=== PATIENT | female | born 2000 | race Caucasian/White ===

== ENCOUNTER 2021-04-11 17:49 | Emergency (ER) | payer OTHER ==
[~2021-04-11] VITALS: Ht 162.6 cm; Wt 65.8 kg
[2021-04-11] MEDS ORDERED: CYCL10 PO (21:33)
[2021-04-11] MEDS ORDERED: IBUP600 PO (21:33)
== END 2021-04-11 21:58 | disposition home or self-care (01) ==
LOC: ER 17:49
DX: T22.412A Corrosion of unspecified degree of left forearm, initial encounter (principal); T21.42XA Corrosion of unspecified degree of abdominal wall, initial encounter; V49.40XA Driver injured in collision with unspecified motor vehicles in traffic accident, initial encounter; Y92.410 Unspecified street and highway as the place of occurrence of the external cause
CPT/HCPCS: 73110; 74177; 90471; 90714; 96374; 99284-25; A9270; J1885; Q9967

== ENCOUNTER 2023-11-23 04:39 | Emergency (ER) | payer BC ==
[~2023-11-23] VITALS: Ht 162.6 cm; Wt 74.8 kg
[~2023-11-23 04:39] MED LIST: CYCL10 PO; IBUP600 PO
[2023-11-23 05:05] LABS: Source, Urine Clean Catch
[2023-11-23 05:12] LABS: BASOPHILS ABSOLUTE AUTO 0.11 K/mm3 (0.00-0.23); BASOPHILS PERCENT AUTO 1 % (0-2); EOSINOPHILS ABSOLUTE AUTO 0.23 K/mm3 (0.00-0.68); EOSINOPHILS PERCENT AUTO 2 % (0-6); Hematocrit 37.5 % (33.0-51.0); Hemoglobin 12.4 g/dL (11.5-16.0); IMMATURE GRAN ABSOLUTE AUTO 0.06 K/mm3 (0.00-0.10); IMMATURE GRAN PERCENT AUTO 0 % (0-1); LYMPHOCYTES ABSOLUTE AUTO 1.83 K/mm3 (0.84-5.20); LYMPHOCYTES PERCENT AUTO 12 % (21-46); MONOCYTES ABSOLUTE AUTO 0.71 K/mm3 (0.16-1.47); MONOCYTES PERCENT AUTO 5 % (4-13); Mean Corpuscular HGB 30.5 pg (26.0-34.0); Mean Corpuscular HGB Conc 33.1 g/dL (31.5-36.5); Mean Corpuscular Volume 92 fL (80-100); Mean Platelet Volume 9.3 fL (9.1-12.4); NEUTROPHILS ABSOLUTE AUTO 12.28 K/mm3 (1.96-9.15); NEUTROPHILS PERCENT AUTO 81 % (41-73); Platelet Count 335 K/mm3 (150-400); RDW Coefficient Variation 11.9 % (11.7-14.2); Red Blood Cell Count 4.07 M/mm3 (3.80-5.20); White Blood Cell Count 15.22 K/mm3 (4.00-11.30)
[2023-11-23] MEDS ORDERED: NS 1,000 ML IV SCH (05:20)
[2023-11-23 05:25] LABS: Appearance, Urine Clear (Clear); Bilirubin, Urine Neg (Neg); Blood, Urine 4+ (Neg); Color, Urine Yellow (P-Yellow); Glucose Qualitative, Urine Neg (Neg); Ketones, Urine Neg (Neg); Leukocyte Esterase, Urine Neg (Neg); Nitrite, Urine Neg (Neg); Protein, Urine 1+ (Neg); Specific Gravity, Urine 1.025 (1.003-1.022); Urobilinogen, Urine NORM (Normal)
[2023-11-23 05:38] LABS: Bacteria Few /hpf; Red Blood Cells, Urine 0-2 /hpf (0-2); Squamous Epithelial Cells Mod /hpf (Few); White Blood Cells, Urine 0-2 /hpf (0-5)
[2023-11-23 05:39] LABS: Calcium Oxalate Crystals Few /hpf
[2023-11-23] MEDS ORDERED: Acetaminophen 325 MG TABLET PO ONE (05:45)
[2023-11-23 05:54] LABS: Albumin, Blood 4.1 g/dL (3.4-5.0); Albumin/Globulin Ratio 1.2 (0.8-1.8); Bilirubin, Total 0.4 mg/dL (0.1-1.0); Bun/Creatinine Ratio 11.8 (12.0-20.0); Calcium, Blood 9.1 mg/dL (8.5-10.1); Creatinine, Blood 0.59 mg/dL (0.40-1.00); Globulin, Blood 3.5 g/dL (2.2-4.0); Potassium, Blood 3.6 mmol/L (3.5-5.5); Total Protein, Blood 7.6 g/dL (6.4-8.2)
[2023-11-23] MEDS ORDERED: FentaNYL Citrate 50 MCG/ML 2 ML Injection IV ONE (06:35)
[2023-11-23] MEDS ORDERED: OXYC5 PO (08:05)
[2023-11-23] MEDS ORDERED: NARCAN4 M1 ×2 (08:09→08:10)
[2023-11-23 08:23] VITALS: BP 118/64
== END 2023-11-23 08:24 | disposition home or self-care (01) ==
LOC: ER 04:39
PROVIDERS: Student in an Organized Health Care Education/Training Program
DX: O20.0 Threatened abortion (principal); O99.111 Other diseases of the blood and blood-forming organs and certain disorders involving the immune mechanism complicating pregnancy, first trimester; D72.829 Elevated white blood cell count, unspecified; Z3A.01 Less than 8 weeks gestation of pregnancy; Z88.0 Allergy status to penicillin
CPT/HCPCS: 76801; 76817; 80053; 81001; 81025; 84702; 85025; 86850; 86900; 86901; 96374; 99284-25; A9270; J3010; J7030

== ENCOUNTER 2024-02-09 11:36 | Emergency (ER) | payer BC ==
[~2024-02-09] VITALS: Ht 162.6 cm; Wt 77.1 kg
[~2024-02-09 11:36] MED LIST changes: +NARCAN4 M1; +OXYC5 PO
[2024-02-09] MEDS ORDERED: PyridOXINE HCL 50 MG TAB PO ONE ×2 (11:55→15:10)
[2024-02-09 13:11] LABS: BASOPHILS ABSOLUTE AUTO 0.07 K/mm3 (0.00-0.23); BASOPHILS PERCENT AUTO 0 % (0-2); EOSINOPHILS ABSOLUTE AUTO 0.03 K/mm3 (0.00-0.68); EOSINOPHILS PERCENT AUTO 0 % (0-6); Hematocrit 38.4 % (33.0-51.0); Hemoglobin 13.1 g/dL (11.5-16.0); IMMATURE GRAN ABSOLUTE AUTO 0.05 K/mm3 (0.00-0.10); IMMATURE GRAN PERCENT AUTO 0 % (0-1); LYMPHOCYTES ABSOLUTE AUTO 2.49 K/mm3 (0.84-5.20); LYMPHOCYTES PERCENT AUTO 15 % (21-46); MONOCYTES ABSOLUTE AUTO 0.94 K/mm3 (0.16-1.47); MONOCYTES PERCENT AUTO 6 % (4-13); Mean Corpuscular HGB 30.4 pg (26.0-34.0); Mean Corpuscular HGB Conc 34.1 g/dL (31.5-36.5); Mean Corpuscular Volume 89 fL (80-100); Mean Platelet Volume 9.3 fL (9.1-12.4); NEUTROPHILS ABSOLUTE AUTO 13.61 K/mm3 (1.96-9.15); NEUTROPHILS PERCENT AUTO 79 % (41-73); Platelet Count 403 K/mm3 (150-400); RDW Coefficient Variation 11.7 % (11.7-14.2); RDW Standard Deviation 37.7 fL (35.1-46.3); Red Blood Cell Count 4.31 M/mm3 (3.80-5.20); White Blood Cell Count 17.19 K/mm3 (4.00-11.30)
[2024-02-09 13:13] LABS: Bun/Creatinine Ratio 9.9 (12.0-20.0); Calcium, Blood 9.1 mg/dL (8.5-10.1); Creatinine, Blood 0.51 mg/dL (0.40-1.00); Potassium, Blood 3.6 mmol/L (3.5-5.5)
[2024-02-09] MEDS ORDERED: NS 1,000 ML IV SCH (14:05)
[2024-02-09] MEDS ORDERED: Metoclopramide HCl 5MG / ML 2ML Vial IV ONE (14:05)
[2024-02-09 16:35] LABS: Source, Urine Clean Catch
[2024-02-09 17:05] LABS: Appearance, Urine Clear (Clear); Bilirubin, Urine Neg (Neg); Blood, Urine Neg (Neg); Color, Urine Yellow (P-Yellow); Glucose Qualitative, Urine Neg (Neg); Ketones, Urine 4+ (Neg); Leukocyte Esterase, Urine Neg (Neg); Nitrite, Urine Neg (Neg); Protein, Urine Neg (Neg); Urobilinogen, Urine NORM (Normal)
[2024-02-09] MEDS ORDERED: PROM12.5S PR ×2 (17:13)
[2024-02-09] MEDS ORDERED: DICLEGIS DR 101 EAC1 PO ×2 (17:13)
[2024-02-09 17:45] VITALS: BP 124/68
[2024-02-10] MEDS ORDERED: ONDA4ODT MM (13:55)
[2024-02-10] MEDS ORDERED: Percocet 5-3251 EACH PO (13:55)
== END 2024-02-09 17:44 | disposition home or self-care (01) ==
LOC: ER 11:36
PROVIDERS: Physician Assistant
DX: O21.9 Vomiting of pregnancy, unspecified (principal); Z3A.01 Less than 8 weeks gestation of pregnancy; Z88.0 Allergy status to penicillin
CPT/HCPCS: 76801; 76817; 80048; 81003; 84702; 85025; 96374; 99284-25; A9270; J2765; J7030

== ENCOUNTER 2024-02-10 09:30 | Emergency (ER) | payer BC ==
[~2024-02-10] VITALS: Ht 162.6 cm; Wt 77.1 kg
[~2024-02-10 09:30] MED LIST changes: +DICLEGIS DR 101 EAC1 PO; +PROM12.5S PR
[2024-02-10] MEDS ORDERED: NS 1,000 ML IV SCH (10:10)
[2024-02-10 10:37] LABS: BASOPHILS ABSOLUTE AUTO 0.08 K/mm3 (0.00-0.23); BASOPHILS PERCENT AUTO 1 % (0-2); EOSINOPHILS ABSOLUTE AUTO 0.05 K/mm3 (0.00-0.68); EOSINOPHILS PERCENT AUTO 0 % (0-6); Hematocrit 35.6 % (33.0-51.0); Hemoglobin 12.2 g/dL (11.5-16.0); IMMATURE GRAN ABSOLUTE AUTO 0.03 K/mm3 (0.00-0.10); IMMATURE GRAN PERCENT AUTO 0 % (0-1); LYMPHOCYTES ABSOLUTE AUTO 2.01 K/mm3 (0.84-5.20); LYMPHOCYTES PERCENT AUTO 17 % (21-46); MONOCYTES ABSOLUTE AUTO 0.84 K/mm3 (0.16-1.47); MONOCYTES PERCENT AUTO 7 % (4-13); Mean Corpuscular HGB 30.7 pg (26.0-34.0); Mean Corpuscular HGB Conc 34.3 g/dL (31.5-36.5); Mean Corpuscular Volume 90 fL (80-100); Mean Platelet Volume 9.3 fL (9.1-12.4); NEUTROPHILS ABSOLUTE AUTO 8.82 K/mm3 (1.96-9.15); NEUTROPHILS PERCENT AUTO 75 % (41-73); Platelet Count 329 K/mm3 (150-400); RDW Coefficient Variation 11.7 % (11.7-14.2); RDW Standard Deviation 38.6 fL (35.1-46.3); Red Blood Cell Count 3.97 M/mm3 (3.80-5.20); White Blood Cell Count 11.83 K/mm3 (4.00-11.30)
[2024-02-10 11:12] LABS: Bun/Creatinine Ratio 12.2 (12.0-20.0); Calcium, Blood 8.5 mg/dL (8.5-10.1); Creatinine, Blood 0.49 mg/dL (0.40-1.00); Potassium, Blood 3.6 mmol/L (3.5-5.5)
[2024-02-10] MEDS ORDERED: Ondansetron HCl 2 MG / ML 2ML Vial IV ONE (11:55)
[2024-02-10] MEDS ORDERED: HYDROmorphone HCl/Pf 1MG SYR IV ONE (11:55)
[2024-02-10] MEDS ORDERED: OxyCODONE 7.5 mg/Acetam 325 mg TABLET PO ONE (12:50)
[2024-02-10] MEDS ORDERED: ONDA4ODT MM (13:55)
[2024-02-10] MEDS ORDERED: Percocet 5-3251 EACH PO (13:55)
[2024-02-10 14:01] VITALS: BP 144/65
== END 2024-02-10 14:01 | disposition home or self-care (01) ==
LOC: ER 09:30
PROVIDERS: Physician Assistant
DX: O03.9 Complete or unspecified spontaneous abortion without complication (principal); Z88.0 Allergy status to penicillin
CPT/HCPCS: 76801; 76817; 80048; 84702; 85025; 86900; 86901; 96361; 96374; 96375; 99284-25; A9270; J1170; J2405; J7030

== ENCOUNTER 2024-02-12 16:31 | Observation (INO) | payer SELFPAY ==
[~2024-02-12] VITALS: Ht 162.6 cm; Wt 76.5 kg
[~2024-02-12 16:31] MED LIST changes: +ONDA4ODT MM; +Percocet 5-3251 EACH PO
[2024-02-12 17:47] LABS: BASOPHILS PERCENT AUTO 1 % (0-2); EOSINOPHILS ABSOLUTE AUTO 0.06 K/mm3 (0.00-0.68); EOSINOPHILS PERCENT AUTO 0 % (0-6); Hematocrit 33.7 % (33.0-51.0); Hemoglobin 11.8 g/dL (11.5-16.0); IMMATURE GRAN ABSOLUTE AUTO 0.09 K/mm3 (0.00-0.10); IMMATURE GRAN PERCENT AUTO 1 % (0-1); LYMPHOCYTES ABSOLUTE AUTO 1.94 K/mm3 (0.84-5.20); LYMPHOCYTES PERCENT AUTO 10 % (21-46); MONOCYTES ABSOLUTE AUTO 1.15 K/mm3 (0.16-1.47); MONOCYTES PERCENT AUTO 6 % (4-13); Mean Corpuscular HGB 30.6 pg (26.0-34.0); Mean Corpuscular Volume 87 fL (80-100); Mean Platelet Volume 9.4 fL (9.1-12.4); NEUTROPHILS ABSOLUTE AUTO 15.98 K/mm3 (1.96-9.15); NEUTROPHILS PERCENT AUTO 83 % (41-73); Platelet Count 372 K/mm3 (150-400); RDW Coefficient Variation 11.6 % (11.7-14.2); RDW Standard Deviation 37.1 fL (35.1-46.3); Red Blood Cell Count 3.86 M/mm3 (3.80-5.20); White Blood Cell Count 19.32 K/mm3 (4.00-11.30)
[2024-02-12] MEDS ORDERED: LORazepam 2 MG/ML 1ML Injection IV ONE (18:00)
[2024-02-12] MEDS ORDERED: Ondansetron HCl 2 MG / ML 2ML Vial IV PRN ×2 (18:00→22:20)
[2024-02-12] MEDS ORDERED: Lactated Ringer's 1,000 ML IV ONE ×2 (18:00→19:35)
[2024-02-12] MEDS ORDERED: HYDROmorphone HCl/Pf 1MG SYR IV PRN ×2 (18:00→22:20)
[2024-02-12 18:29] LABS: Albumin, Blood 4.2 g/dL (3.4-5.0); Albumin/Globulin Ratio 1.3 (0.8-1.8); Bilirubin, Total 0.5 mg/dL (0.1-1.0); Bun/Creatinine Ratio 11.4 (12.0-20.0); Calcium, Blood 9.3 mg/dL (8.5-10.1); Creatinine, Blood 0.61 mg/dL (0.40-1.00); Globulin, Blood 3.3 g/dL (2.2-4.0); Potassium, Blood 3.1 mmol/L (3.5-5.5); Total Protein, Blood 7.5 g/dL (6.4-8.2)
[2024-02-12] MEDS ORDERED: Potassium Chloride 10 Meq Tablet SA PO ONE (19:35)
[2024-02-12 21:41] VITALS: BP 120/69
[2024-02-12] MEDS ORDERED: Potassium Chloride 20 MEQ in Lactated Ringer's 1,000 ML IV SCH (23:00)
[2024-02-13] VITALS (18 sets, daily range): BP systolic 90–129; BP diastolic 47–73
--- NOTE | 2024-02-13 04:38 | NUR ---
SHIFT SUMMARY PT IS A/O X4 AND INDEPENDENT IN ROOM. PT ADMITTED FOR MISCARRIAGE W/ PLAN FOR D&C IN AM W/ DR. KING. PT RECIEVING IV FLUIDS W/ K PER MD ORDERS FOR HYPOKALEMIA. PAIN TREATED W/ IV DILAUDID W/ TOLERABLE RESULTS, PT DENIES N/V AT THIS TIME. NPO SINCE 0300 FOR SURGERY THIS AM. PT IS HAVING MODERATE VAGINAL BLEEDING AND PASSED A CLOT @ 0400 AM APPROXIMATELY 3X1 INCHES. HAS BLED THROUGH ONE PAD SINCE ADMITTED TO FLOOR 2200 02/11. VSS. FIANCE IN ROOM. SURGICAL WIPES, NOZIN AND ORAL RINSE COMPLETE. CALL LIGHT IN REACH.
[2024-02-13 05:36] LABS: Hemoglobin 9.5 g/dL (11.5-16.0)
--- NOTE | 2024-02-13 06:24 | NUR ---
CONSULTED W/ WONDERLY REGARDING DROP IN H&H AND PASSING OF CLOT THIS AM, PROVIDER AWARE AND NO FURTHER ORDERS RECIEVED.
[2024-02-13] MEDS ORDERED: Lactated Ringer's 1,000 ML IV SCH ×2 (07:35→09:30)
--- NOTE | 2024-02-13 07:48 | NUR ---
PT TAKEN TO DAY SURGERY AT THIS TIME.
[2024-02-13] MEDS ORDERED: Midazolam HCl 1MG / ML 2ML Vial IV SCH (08:15)
[2024-02-13] MEDS ORDERED: CeFAZolin Sodium 2,000 MG in NS 100 ML IV SCH (08:15)
[2024-02-13] MEDS ORDERED: propofoL 20 ML IV ONE (08:18)
[2024-02-13] MEDS ORDERED: FentaNYL Citrate 50 MCG/ML 2 ML Injection ONE (08:18)
[2024-02-13] MEDS ORDERED: Lidocaine HCl 2% 20 ML MDV ONE (08:20)
[2024-02-13] MEDS ORDERED: Ondansetron HCl 2 MG / ML 2ML Vial ONE ×3 (08:20→09:29)
[2024-02-13] MEDS ORDERED: Dexamethasone Sod Phos 10 MG/ML 1ML VIAL ONE ×2 (08:20)
--- NOTE | 2024-02-13 08:27 | NUR ---
DSD [id number] NOTE PT TO DSU PRE-OP. PT A&OX4 BREATHING RA, CRAMPING AND PAINFUL IN ABDOMEN, PAIN MEDICATION GIVEN PRIOR TO TRANSFER TO DSU. ABEL AT BEDSIDE. PT CALM AND WITHDRAWN. 20G IV TO L FA PATENT BUT PAINFUL, DIONNE E TO START NEW IV IN OR. WEDDING RING GIVEN TO ABEL SRIVASTAVA. Ambulatory in Day Surgery Pre-Op teaching done. Pt verbalizes understanding. Patient confirms NPO status and agrees with scheduled surgery.
[2024-02-13] MEDS ORDERED: Methylergonovine Maleate 0.2MG / ML 1ML Amp ONE (08:45)
[2024-02-13] MEDS ORDERED: Ketorolac Tromethamine 30mg Vial ONE (08:54)
[2024-02-13] MEDS ORDERED: OxyCODONE 5 mg/Acetamin 325 mg TABLET PO PRN (09:25)
[2024-02-13] MEDS ORDERED: Ondansetron HCl 2 MG / ML 2ML Vial IV PRN (09:25)
[2024-02-13] MEDS ORDERED: Ondansetron 4 MG TAB PO PRN (09:25)
[2024-02-13] MEDS ORDERED: Acetaminophen 325 MG TABLET PO PRN (09:30)
[2024-02-13] MEDS ORDERED: Naloxone HCl 0.4MG / ML 1ML Vial IV PRN (09:30)
[2024-02-13] MEDS ORDERED: Promethazine HCl 25 MG Tab PO PRN ×2 (09:30)
[2024-02-13] MEDS ORDERED: Magnesium Hydroxide Conc 10 ML UDC PO PRN (09:30)
[2024-02-13] MEDS ORDERED: Ketorolac Tromethamine 30mg Vial IV PRN (09:35)
[2024-02-13] MEDS ORDERED: DiphenhydrAMINE HCl 50 MG/ML 1ML Vial IV PRN (12:15)
[2024-02-13] MEDS ORDERED: Dexamethasone Sod Phos 10 MG/ML 1ML VIAL IV ONE (12:20)
--- NOTE | 2024-02-13 13:30 | NUR ---
BEDSIDE REPORT GIVEN TO GORDON TATE. PT A&O DURING BEDSIDE REPORT. PT VERBALIZED THAT PAIN WAS TOLERABLE AND THAT NAUSEA HAD IMPROVED.
--- NOTE | 2024-02-13 13:30 | NUR ---
SPOKE WITH DR. KING REGARDING CONTINUED N/V AFTER PHENERGAN WAS GIVEN. DECADRON ORDERED. PT REPORTED NAUSEA IMPROVED.
--- NOTE | 2024-02-13 14:33 | NUR ---
PT ARRIVED BACK TO THE ROOM FROM PACU AT APPROXIMATELY 0958. PT ALERT AND ORIENTED X4 UPON ARRIVAL BACK TO THE ROOM. PT REPORTED MILD VAGINAL DISCOMFORT, AND LIGHT BLEEDING. PT REPORTED NAUSEA. VSS. S/O AT BEDSIDE. CALL LIGHT PLACED WITHIN REACH.
[2024-02-13] MEDS ORDERED: DOCU100 PO (16:48)
[2024-02-13] MEDS ORDERED: ACET325 PO (16:48)
[2024-02-13] MEDS ORDERED: DULCOLAX400 MG/5 M PO (16:51)
[2024-02-13] MEDS ORDERED: Percocet 5-3251 EACH PO (16:51)
[2024-02-13] MEDS ORDERED: SENNA LAXATIVE8.6 MG PO (16:52)
--- NOTE | 2024-02-13 17:12 | NUR ---
DISCHARGE INFORMATION PROVIDED PT PROVIDED W/ DISCHARGE INSTRUCTIONS, EDUCATED ON USE OF BOWEL CARE AND PAIN MEDICATIONS, ENCOURAGED LIMITED USE OF TYLENOL W/ PERC RX AND AMOUNT OF TYLENOL USED, EDUCATED ON ACTIVITY LIMITS. 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 V/U BY PT FOR PROVIDER ORDERS ON WORK AND ACTIVITY ORDERS.
[2024-02-13] MEDS ORDERED: Sennosides 8.6 MG Tab PO SCH (21:00)
[2024-02-13] MEDS ORDERED: Docusate Sodium 100 MG Cap PO SCH (21:00)
== END 2024-02-13 17:45 | disposition home or self-care (01) ==
LOC: ER 16:31 → SURS 16:32
PROVIDERS: Student in an Organized Health Care Education/Training Program; ADMIT Obstetrics & Gynecology
PROC: 10D17ZZ Extraction of Products of Conception, Retained, Via Natural or Artificial Opening (ICD-10-PCS; principal; 2024-02-13 08:15)
DX: O03.4 Incomplete spontaneous abortion without complication (principal); D62 Acute posthemorrhagic anemia
CPT/HCPCS: 36415; 76801; 76817; 80053; 84132; 84702; 85014; 85018; 85025; 86850; 86900; 86901; 96361; 96365; 96366; 96374; 96375; 96376; 99285-25; A9270; G0378; J0690; J1100; J1170; J1885; J2060; J2210; J2250; J2405; J2704; J3010; J3480; J7120

== ENCOUNTER → 2025-08-30 | Outpatient (CLI) | payer OTHER ==
[~2025-08-30] MED LIST changes: +ACET325 PO; +DOCU100 PO; +DULCOLAX400 MG/5 M PO; +SENNA LAXATIVE8.6 MG PO
[2025-09-02 13:25] LABS: C. TRACHOMATIS BY TMA,THINPREP Negative (Negative); N. GONORRHOEAE BY TMA,THINPREP Negative (Negative)
== END ==
LOC: LAB 16:59 → LAB SHORT 16:59
PROVIDERS: Obstetrics & Gynecology
DX: O09.91 Supervision of high risk pregnancy, unspecified, first trimester (principal); Z11.3 Encounter for screening for infections with a predominantly sexual mode of transmission
CPT/HCPCS: 36415; 87491; 87591; G0145